=== PATIENT | male | born 1970 | race Asian ===

== ENCOUNTER 2022-04-27 13:10 | Emergency (ER) | payer SELFPAY ==
[2022-04-27] VITALS (11 sets, daily range): BP systolic 129–195; BP diastolic 73–139
[~2022-04-27] VITALS: Ht 177.8 cm; Wt 100.0 kg
[2022-04-27 14:19] LABS: HEMATOCRIT 38.6 % (39.0-50.0); HEMOGLOBIN 12.2 g/dl (14.0-18.0); IMMATURE GRANULOCYTES 0.3 % (0.0-5.0); MEAN CELL VOLUME 84.1 fL CALC (80.0-100.0); MEAN CORPUSCULAR HGB 26.6 pG CALC (26.0-32.0); MEAN CORPUSCULAR HGB CONC 31.6 g/dL CAL (32.0-36.0); NEUT# 2.72 thou/uL (1.82-7.42); RED BLOOD COUNT 4.59 mill/uL (4.70-6.10); RED CELL DISTRI WIDTH 15.8 % (11.5-15.5)
[2022-04-27 14:21] LABS: GFR FOR AFR.AMER. > 60 ML/MIN (>=60 (CALC)); GFR OTHER RACES > 60 ML/MIN (>=60 (CALC))
[2022-04-27] MEDS ORDERED: AMBIEN5 MG PO (14:23)
[2022-04-27 14:26] LABS: ALBUMIN 4.9 g/dL (3.2-5.0); ALKALINE PHOSPHATASE 113 u/l (38-126); ANION GAP 16 (6-22 (CALC)); BILIRUBIN, TOTAL 0.6 mg/dL (0.0-1.4); BUN 17 mg/dL (9-20); BUN/CREATININE RATIO 24 (12-20 (CALC)); CARBON DIOXIDE 22 mmol/l (22-30); CHLORIDE 107 mmol/l (95-108); CREATININE 0.7 mg/dL (0.7-1.3); GFR FOR AFR.AMER. > 60 ML/MIN (>=60 (CALC)); GFR OTHER RACES > 60 ML/MIN (>=60 (CALC)); POTASSIUM 4.3 mmol/l (3.5-5.1); SGOT/AST 27 u/l (17-59); SODIUM 140 mmol/l (137-146); TOTAL PROTEIN 7.3 g/dL (6.3-8.2)
[2022-04-27] MEDS ORDERED: TRAMADOL HYDROC50 M1 PO (16:57)
[2022-04-27] MEDS ORDERED: NAPROXEN500 MG PO (16:57)
[2022-04-27] MEDS ORDERED: MEDDOSEPAK PO (16:57)
[2022-04-27] MEDS ORDERED: METHOCARBAMOL500 MG PO (16:57)
== END 2022-04-27 17:25 | disposition home or self-care (01) | DRG 313 ==
LOC: ED 13:10
PROVIDERS: Family Medicine; Nurse Practitioner
DX: R07.9 Chest pain, unspecified (principal); M25.511 Pain in right shoulder